=== PATIENT | male | born 1995 | race Caucasian/White ===

== ENCOUNTER 2023-06-07 17:49 | Inpatient (IN) | payer SELFPAY ==
[~2023-06-07] VITALS: Ht 172.7 cm; Wt 73.5 kg
--- NOTE | 2023-06-07 18:15 | NUR ---
Esha carlisle in [facility] - 06/07/23 at 1824 by BEL URINE SAMPLE SENT TO LAB
--- NOTE | 2023-06-07 18:24 | NUR ---
BIBS C/O ABDOMINAL PAIN SINCE THIS MORNING THAT STARTED MID ABDOMINAL THAT MOVED TO RLQ, PAIN 8/10, THREW UP ONCE PRIOR TO ARRIVAL.
--- NOTE | 2023-06-07 18:25 | NUR ---
URINE SAMPLE SENT TO LAB
--- NOTE | 2023-06-07 18:47 | NUR ---
TOY ELECTRIC TRAIN REPAIRER AT BEDSIDE
[2023-06-07 19:18] LABS: BASOPHILS # (AUTO) 0.1 K/uL (0.0-0.2); BASOPHILS % (AUTO) 0.6 % (0.0-2.0); EOSINOPHILS % (AUTO) 0.2 % (0.0-6.0); HEMATOCRIT 46 % (39-51); HEMOGLOBIN 15.3 g/dL (13.5-17.5); LYMPHOCYTES % (AUTO) 11.2 % (20.0-44.0); MEAN CORPUSCULAR HGB CONC 33 g/dl (31.0-36.0); MEAN CORPUSCULAR VOLUME 86 fL (80-96); MONOCYTES # (AUTO) 1.7 K/uL (0.1-1.30); MONOCYTES % (AUTO) 9.5 % (2.0-12.0); NEUTROPHILS # (AUTO) 13.8 K/uL (1.8-8.9); NEUTROPHILS % (AUTO) 78.5 % (43.0-81.0); PLATELET COUNT (AUTO) 351 K/uL (150-450); RED BLOOD CELL COUNT(AUTO) 5.33 MIL/uL (4.5-6.0); WHITE BLOOD COUNT (AUTO) 17.6 K/uL (4.3-11.0)
[2023-06-07 19:27] LABS: BILIRUBIN,URINE 1+ (NEGATIVE); COLOR,URINE YELLOW (YELLOW); LEUKOCYTE ESTERASE ,URINE NEGATIVE (NEGATIVE); NITRITE, URINE NEGATIVE (NEGATIVE); PH,URINE 6.5 (5.0-8.0); PROTEIN,URINE TRACE mg/dl (NEGATIVE); UGLUCOSE NEGATIVE (NEGATIVE)
[2023-06-07 19:30] LABS: CALCIUM, SERUM 9.5 mg/dL (8.5-10.1); CREATININE 0.8 mg/dL (0.6-1.3); POTASSIUM 3.3 mmol/L (3.5-5.1)
[2023-06-07] MEDS ORDERED: MORPHINE SULFATE INJ 2 MG/ML DISP.SYRIN IV ONE (19:30)
[2023-06-07] MEDS ORDERED: ONDANSETRON HCL/PF - ER 4 MG/2 ML VIAL IV ONE (19:30)
[2023-06-07] MEDS ORDERED: IV NS 0.9% 1,000 ML IV ONE (19:30)
[2023-06-07 19:37] LABS: ALBUMIN 4.1 g/dL (3.4-5.0); BILIRUBIN,DIRECT 0.1 mg/dL (0.0-0.2); BILIRUBIN,TOTAL 0.6 mg/dL (0.2-1.0); TOTAL PROTEIN, SERUM 7.5 g/dL (6.4-8.2)
[2023-06-07 19:38] LABS: BACTERIA,URINE None seen /HPF (None Seen); WBC,URINE 0-2 /HPF (0-3)
[2023-06-07 19:39] LABS: MUCUS,URINE Moderate /LPF (None Seen)
[2023-06-07] MEDS ORDERED: MORPHINE SULFATE INJ 2 MG/ML DISP.SYRIN ONE (19:43)
[2023-06-07] MEDS ORDERED: ONDANSETRON HCL/PF 4 MG/2 ML VIAL ONE (19:43)
--- NOTE | 2023-06-07 20:12 | NUR ---
patient taken to ct via jan
--- NOTE | 2023-06-07 20:21 | NUR ---
PT RETURNED TO ER BED [address]
--- NOTE | 2023-06-07 21:28 | NUR ---
PAGED DR ELENA AT [phone]
[2023-06-07] MEDS ORDERED: PIPERACILLIN /TAZOBACTAM 3.375 G in IV D5W 50 ML IV ONE (21:30)
--- NOTE | 2023-06-07 21:35 | NUR ---
DR BROWN ON THE PHONE WITH DR ELENA
[2023-06-07] MEDS ORDERED: PIPERACI/TAZO 3.375GM/D5W 50ML PB IV ONE (21:43)
--- NOTE | 2023-06-07 21:50 | NUR ---
AUTOMOTIVE PARTS MANAGER AT PT'S BEDSIDE
--- NOTE | 2023-06-07 21:56 | NUR ---
REPORT GIVEN TO TRAVIS ARAUJO ROOM 323 FOR PJ
[2023-06-07 22:00] VITALS: BP 127/75; TEMP 97.7; O2SAT 98
[2023-06-07] MEDS ORDERED: LORAZEPAM INJ 2 MG/ML VIAL IV PRN (22:00)
[2023-06-07] MEDS ORDERED: Z GUARD REMEDY 4 OZ OINT TP PRN (22:00)
[2023-06-07] MEDS ORDERED: ONDANSETRON HCL/PF 4 MG/2 ML VIAL IVP PRN (22:00)
[2023-06-07] MEDS ORDERED: ACETAMINOPHEN 650 MG/SUPP.RECT RC PRN (22:00)
--- NOTE | 2023-06-07 22:30 | NUR ---
MS RN ADMITTING NOTE PATIENT WAS TRANSFERRED FROM ER TO 323 2 AT 2205H; PATIENT IS A/O X 4, AMBULATORY, ABLE TO MAKE NEEDS KNOWN; STABLE ON ROOM AIR, BREATHING EVENLY AND NO S/S OF DISTRESS NOTED; WITH IV ACCESS AT RIGHT AC G#18; ORIENTED TO STAFF AND ROOM; VITAL SIGNS TAKEN AND RECORDED; PATIENT'S BELONGINGS ACCOUNTED FOR; SKIN ASSESSMENT WAS DONE AND NOTED SKIN IS INTACT; ENCOURAGED VERBALIZATION OF NEEDS; SAFETY MEASURES IMPLEMENTED, BED LOCKED IN LOWEST POSITION, SIDE RAILS UP X 2, CALL LIGHT AND TABLE WITHIN REACH; WILL CONTINUE TO MONITOR THROUGHOUT SHIFT
[2023-06-07] MEDS: IV NS 0.9% 1,000 ML IV PRN (22:32)
[2023-06-07] MEDS: PANTOPRAZOLE 40 MG VIAL IV SCH (22:42)
[2023-06-08] VITALS (7 sets, daily range): BP systolic 114–123; BP diastolic 58–71; TEMP 98–98.7; O2SAT 96–100
[2023-06-08] MEDS ORDERED: PIPERACI/TAZO 3.375GM/D5W 50ML PB IV ONE (05:02)
[2023-06-08 05:50] LABS: BASOPHILS # (AUTO) 0.1 K/uL (0.0-0.2); BASOPHILS % (AUTO) 0.4 % (0.0-2.0); EOSINOPHILS % (AUTO) 0.5 % (0.0-6.0); HEMATOCRIT 41 % (39-51); HEMOGLOBIN 13.5 g/dL (13.5-17.5); LYMPHOCYTES # (AUTO) 2.5 K/uL (0.8-4.8); LYMPHOCYTES % (AUTO) 18.9 % (20.0-44.0); MEAN CORPUSCULAR HGB CONC 33 g/dl (31.0-36.0); MEAN CORPUSCULAR VOLUME 86 fL (80-96); MONOCYTES # (AUTO) 1.1 K/uL (0.1-1.30); MONOCYTES % (AUTO) 8.3 % (2.0-12.0); NEUTROPHILS # (AUTO) 9.4 K/uL (1.8-8.9); NEUTROPHILS % (AUTO) 71.9 % (43.0-81.0); PLATELET COUNT (AUTO) 330 K/uL (150-450); RED BLOOD CELL COUNT(AUTO) 4.77 MIL/uL (4.5-6.0); WHITE BLOOD COUNT (AUTO) 13.1 K/uL (4.3-11.0)
[2023-06-08] MEDS ORDERED: PIPERACILLIN /TAZOBACTAM 3.375 G in IV D5W 50 ML IV SCH (06:00)
[2023-06-08 06:02] LABS: CALCIUM, SERUM 8.9 mg/dL (8.5-10.1); CREATININE 0.8 mg/dL (0.6-1.3); MAGNESIUM 2.2 mg/dL (1.8-2.4); PHOSPHORUS 3.9 mg/dL (2.5-4.9); POTASSIUM 3.7 mmol/L (3.5-5.1)
--- NOTE | 2023-06-08 06:53 | NUR ---
MS RN CLOSING NOTE PATIENT IS A/O X 4, AMBULATORY, ABLE TO MAKE NEEDS KNOWN; STABLE ON ROOM AIR, BREATHING EVENLY AND NO S/S OF DISTRESS NOTED; WITH IV ACCESS AT RIGHT AC G#18 INFUSING WELL AT NORMAL SALINE AT 75 ML/HR; ADMINISTERED MEDICATIONS PRESCRIBED; PATIENT'S NEEDS ATTENDED; NO COMPLAINTS OF PAIN AND DISCOMFORT AT THIS TIME; SAFETY MEASURES IMPLEMENTED, BED LOCKED IN LOWEST POSITION, SIDE RAILS UP X 2, CALL LIGHT AND TABLE WITHIN REACH; WILL ENDORSE TO AM NURSE FOR PJ.
--- NOTE | 2023-06-08 07:05 | NUR ---
RN OPENING NOTE RECEIVED PATIENT LAYING IN BED AWAKE. A/O X 4, STABLE ON ROOM AIR, BREATHING EVENLY AND NO S/S OF DISTRESS NOTED; WITH IV ACCESS AT RIGHT AC G#18 INFUSING WELL AT NORMAL SALINE AT 75 ML/HR; PT IS C/O LOWER ABDOMINAL PAIN 07/19. SAFETY MEASURES IMPLEMENTED, BED LOCKED IN LOWEST POSITION, SIDE RAILS UP X 2, CALL LIGHT AND TABLE WITHIN REACH; WILL CONTINUE TO MONITOR.
[2023-06-08] MEDS: MORPHINE SULFATE INJ 2 MG/ML DISP.SYRIN IV PRN ×2 (07:22→23:37)
[2023-06-08] MEDS: PANTOPRAZOLE 40 MG VIAL IV SCH (08:25)
[2023-06-08] MEDS ORDERED: AMOX500C2 PO (09:14)
[2023-06-08] MEDS ORDERED: IBUP-1955 PO (09:14)
[2023-06-08] MEDS: PIPERACILLIN /TAZOBACTAM 3.375 G in IV D5W 50 ML IV SCH ×2 (12:12→17:02)
--- NOTE | 2023-06-08 18:40 | NUR ---
RN CLOSING NOTE PATIENT LAYING IN BED AWAKE. A/O X 4, STABLE ON ROOM AIR, BREATHING EVENLY AND NO S/S OF DISTRESS NOTED; WITH IV ACCESS AT RIGHT AC G#18 INFUSING WELL AT NORMAL SALINE AT 75 ML/HR; PT IS C/O LOWER ABDOMINAL PAIN 9/10 PAIN MEDS PRN. PT GIRLFREIND SEEN AT BEDSIDE. PT HAVING LAPROSCOPIC APPENDECTOMY THIS EVENING WITH DR ELENA. PT NPO THE WHOLE DAY. SAFETY MEASURES IMPLEMENTED, BED LOCKED IN LOWEST POSITION, SIDE RAILS UP X 2, CALL LIGHT AND TABLE WITHIN REACH; WILL ENDORSE TO NOC SHIFT FOR PJ.
--- NOTE | 2023-06-08 19:20 | NUR ---
RN Opening Note Pt awaken in bed, watching a movie on tablet. A/O*4, follow commands. Pt is waiting for pending surgery. No s/s of pain noted this time. IV site right AC 18G, patent and clean, running NS 75mL/H. On RA, breathing even, unlabored, no distress or SOB noted. All safety measures in place, bed alarm on, bed in low and locked position, call lights and table in easy reach, and side rails up*2. Will continue monitoring.
[2023-06-08] MEDS ORDERED: LIDOCAINE 1% INJ 50 ML MDV IJ ONE (20:05)
[2023-06-08] MEDS ORDERED: BUPIVACAINE MPF 0.5% W/EPI INJ 30 ML VIAL ONE (20:05)
--- NOTE | 2023-06-08 20:15 | NUR ---
RN Note Pt left to OR, and transferred care to OR nurse. Will wait for pt to come back from the surgery.
[2023-06-08] MEDS ORDERED: Magnesium 1 GM/2 ML VIAL ONE (20:25)
[2023-06-08] MEDS ORDERED: FAMOTIDINE/PF INJ 20 MG/2 ML VIAL IV ONE (20:25)
[2023-06-08] MEDS ORDERED: ROCURONIUM BROMIDE 50 MG/5 ML ONE (20:25)
[2023-06-08] MEDS ORDERED: HYDROMORPHONE INJ 2 MG/ML DISP.SYRIN ONE (20:25)
[2023-06-08] MEDS ORDERED: MIDAZOLAM HCL 2 MG/2ML VIAL ONE (20:25)
[2023-06-08] MEDS ORDERED: FENTANYL PF 100MCG/2ML AMPUL ONE (20:25)
[2023-06-08] MEDS ORDERED: BACITRACIN ZINC OINT PACKET 1 EA PACKET TP ONE (21:27)
[2023-06-08] MEDS ORDERED: MEPERIDINE25 MG SYR 25 MG/ML VIAL ONE (21:54)
--- NOTE | 2023-06-08 22:53 | NUR ---
RN Note Pt came back from surgery at 1045. Received pt care from PACU nurse, Viki. Initial V/S stable. Dressing on abdomen, clean and dry. Will continue monitoring pt.
[2023-06-08] MEDS ORDERED: IV LR 1000 ML 1,000 ML IV ONE (23:30)
--- NOTE | 2023-06-08 23:45 | NUR ---
RN Note Pt complaint of abdominal pain from surgical site 06/18, aching. Administered PRN morphine 4mg IVP per MD order. Will continue monitoring and reassess.
[2023-06-09] VITALS: BP 115/62; TEMP 98.4; O2SAT 98
[2023-06-09] MEDS ORDERED: ACETAMINOPHEN 325 MG TABLET PO PRN
[2023-06-09 01:00] VITALS: BP 115/55; TEMP 98.1; O2SAT 98
[2023-06-09] MEDS: PIPERACILLIN /TAZOBACTAM 3.375 G in IV D5W 50 ML IV SCH ×3 (01:22→12:33)
[2023-06-09] MEDS: GABAPENTIN 100 MG CAPSULE PO SCH ×3 (01:22→12:47)
[2023-06-09] MEDS: CELECOXIB 100 MG CAPSULE PO SCH ×2 (01:22→08:24)
[2023-06-09] MEDS: ACETAMINOPHEN 325 MG TABLET PO SCH ×2 (01:49→05:35)
[2023-06-09 02:00] VITALS: BP 118/68; TEMP 98; O2SAT 99
[2023-06-09 06:32] LABS: BASOPHILS % (AUTO) 0.2 % (0.0-2.0); EOSINOPHILS % (AUTO) 0.1 % (0.0-6.0); HEMATOCRIT 42 % (39-51); HEMOGLOBIN 13.9 g/dL (13.5-17.5); LYMPHOCYTES # (AUTO) 1.3 K/uL (0.8-4.8); LYMPHOCYTES % (AUTO) 8.8 % (20.0-44.0); MEAN CORPUSCULAR HGB CONC 33 g/dl (31.0-36.0); MEAN CORPUSCULAR VOLUME 86 fL (80-96); MONOCYTES # (AUTO) 0.6 K/uL (0.1-1.30); NEUTROPHILS # (AUTO) 13.3 K/uL (1.8-8.9); NEUTROPHILS % (AUTO) 86.9 % (43.0-81.0); PLATELET COUNT (AUTO) 331 K/uL (150-450); RED BLOOD CELL COUNT(AUTO) 4.88 MIL/uL (4.5-6.0); WHITE BLOOD COUNT (AUTO) 15.3 K/uL (4.3-11.0)
--- NOTE | 2023-06-09 06:35 | NUR ---
RN Closing Note Pt is sleeping in bed, easily aroused. A/O*4, follow commands. Pt is s/p surgery. No s/s of pain noted this time. IV site right hand 18G, patent and clean, running LR 125mL/H. On RA, breathing even, unlabored, no distress or SOB noted. Scheduled medications administered. All needs attended. Encouraged self-care and reposition. All safety measures in place and maintained, bed alarm on, bed in low and locked position, call lights and table in easy reach, and side rails up*2. Will endorse to day shift.
[2023-06-09 07:07] LABS: CALCIUM, SERUM 8.9 mg/dL (8.5-10.1); MAGNESIUM 2.1 mg/dL (1.8-2.4); PHOSPHORUS 4.5 mg/dL (2.5-4.9); POTASSIUM 4.2 mmol/L (3.5-5.1)
--- NOTE | 2023-06-09 07:20 | NUR ---
OPENING NOTES PATIENT AWAKE IN BED, A/O X4. NO S/S OF PAIN NOTED AT THIS TIME. ON ROOM AIR BREATHING EVEN AND UNLABORED, NO DISTRESS OR SOB NOTED. IV ACCESS RIGHT HAND #18G WITH LR AT 125 ML/HOUR, INTACT, PATENT AND INFUSING WELL. SURGICAL ABDOMINAL DRESSING POST APPENDECTOMY DRY AND INTACT. FALL AND SAFETY MEASURES IN PLACE AND MAINTAINED AT ALL TIMES, BED ALARM ON, BED IN LOW AND LOCK POSITION, CALL LIGHT AND TABLE WITHIN EASY REACH, SIDE RAILS UP X2. WILL CONTINUE TO MONITOR THE PATIENT.
[2023-06-09 08:00] VITALS: BP 112/67; TEMP 98.2; TEMP 98.7; O2SAT 93
[2023-06-09] MEDS: IV NS 0.9% 1,000 ML IV PRN (08:25)
[2023-06-09] MEDS ORDERED: PANTOPRAZOLE 40 MG TABLET.DR PO SCH (09:00)
[2023-06-09] MEDS ORDERED: AMOX-430 PO (12:38)
[2023-06-09] MEDS ORDERED: HYDR-3972 PO (12:38)
[2023-06-09] MEDS ORDERED: ACETAMINOPHEN 325 MG TABLET PO SCH (13:00)
--- NOTE | 2023-06-09 15:58 | NUR ---
DISCHARGE NOTES PATIENT DISCHARGE IN STABLE MEDICAL CONDITION, A/O X4. VS TAKEN, STABLE AND RECORDED. NO IV ACCESS. NAME ARM BAND REMOVED. SKIN ASSESSMENT DONE. SKIN INTACT. ALL BELONGINGS CHECKED AND BELONGINGS LIST SIGNED. HEALTH TEACHING AND DISCHARGE INSTRUCTIONS GIVEN AND VERBALIZED UNDERSTANDING. INSTRUCTED TO MAKE AN APPOINTMENT WITH HIS PRIMARY DOCTOR. INSTRUCTED PATIENT TO ADHERE TO PRESCRIBED HOME MEDICATION. INSTRUCTED PATIENT IN CASE OF EMERGENCY TO CALL 911 OR GO TO THE NEAREST ER. PATIENT LEFT UNIT AMBULATORY WITH NO SIGNS OF DISTRESS ACCOMPANIED BY FAMILY (MOTHER AND 2 NEPHEWS) AND RN TO THE LOBBY. CHARGED NURSE AWARE OF DISCHARGED.
--- NOTE | 2023-06-09 15:59 | NUR ---
RN NOTE SURGICAL DRESSING DRY AND INTACT.
== END 2023-06-09 16:00 | disposition home or self-care (01) | DRG 343 ==
LOC: ER 17:54 → MED 21:49
PROVIDERS: ADMIT Nurse Practitioner Acute Care; ATTEND Internal Medicine
PROC: 0DTJ4ZZ Resection of Appendix, Percutaneous Endoscopic Approach (ICD-10-PCS; principal; 2023-06-08)
DX: K35.80 Unspecified acute appendicitis (principal); K59.00 Constipation, unspecified; E87.6 Hypokalemia; F12.90 Cannabis use, unspecified, uncomplicated
CPT/HCPCS: 36415; 80048-TC; 80076-TC; 81001; 83605-TC; 83690-TC; 83735-TC; 84100-TC; 85025-TC; 87040-TC; 87081-TC; 88304-TC; A4223; C9113; G0378; J0330; J0690; J1100; J1170; J2175; J2250; J2270; J2370; J2405; J2543; J2704; J2765; J3010; J3475; J3490; J7030; J7060; J7120